=== PATIENT | female | born 1980 | race Caucasian/White ===

== ENCOUNTER 2023-12-02 07:01 | Emergency (ER) | payer OTHER, BC ==
[2023-12-02 07:33] LABS: HEMATOCRIT 43.3 % (37.0-47.0); HEMOGLOBIN 14.5 g/dL (12.0-16.0); MEAN CORPUSCULAR HEMOGLOBIN 30.7 pg (27.0-34.0); MEAN CORPUSCULAR HGB CONC 33.5 g/dL (33.0-35.0); MEAN CORPUSCULAR VOLUME 91.5 fL (80-100); PLATELET COUNT,PLT 216 10^3/uL (150-450); RED BLOOD CELL COUNT 4.73 10^6/uL (4.2-5.4); WHITE BLOOD CELL COUNT,WBC 8.4 10^3/uL (5.0-10.0)
[2023-12-02 07:41] LABS: BASOPHILS PERCENT AUTO 1.1 % (0.0-1.0); EOSINOPHILS PERCENT AUTO 2.1 % (1.0-3.0); LYMPHOCYTES PERCENT AUTO 26.1 % (20.5-50.1); MONOCYTES PERCENT AUTO 9.2 % (2-8); NEUTROPHILS PERCENT AUTO 61.5 % (42.2-75.2)
[2023-12-02 07:59] LABS: HCG QUALITATIVE,SERUM NEGATIVE (NEGATIVE)
[2023-12-02 08:06] LABS: ANION GAP 14.4 mEq/L (7-13); BLOOD UREA NITROGEN,BUN 11 mg/dL (7-18); CALCIUM 9.5 mg/dL (8.5-10.1); CARBON DIOXIDE,CO2 23 mmol/L (21-32); CHLORIDE,CL 105 mmol/L (98-107); CREATININE 1.08 mg/dL (0.55-1.02); EST CRCL DRUG DOSING (CG) 67.05 mL/min; GLUCOSE RANDOM 118 mg/dL (70-99); POTASSIUM,K 4.4 mmol/L (3.5-5.1); SODIUM,NA 138 mmol/L (136-145)
[2023-12-02 08:12] LABS: ESTIMATED GFR 65 mL/min (>=60)
[2023-12-02 08:19] LABS: BASOPHILS PERCENT MAN 1; EOSINOPHILS PERCENT MAN 1 % (1-3); LYMPHOCYTES PERCENT MAN 27 % (20-50); MONOCYTES PERCENT MAN 11 % (2-8); SEG NEUTROPHILS PERCENT MAN 60 % (42-75)
[2023-12-02] MEDS: Ondansetron 4 MG/2 ML SDV IV ONE (08:22)
[2023-12-02] MEDS: Sodium Chloride 0.9% 1,000 ML IV ONE (08:22)
[2023-12-02] MEDS: Iopamidol 612 MG/ML 100 ML Bottle IVPUSH ONE (08:32)
[2023-12-02] MEDS: Ketorolac 30 MG/ML SDV IVPUSH ONE (08:36)
[2023-12-02] MEDS: Lidocaine 5% Oint 35.44 GM Tube TOP ONE (09:52)
== END 2023-12-02 10:12 | disposition home or self-care (01) ==
LOC: DL.ED 07:01
DX: K59.00 Constipation, unspecified (principal); K64.4 Residual hemorrhoidal skin tags
CPT/HCPCS: 36415; 74177; 80048; 84703; 85025; 96361; 96374; 96375; 99284; A9270; J1885; J2405; J7030; Q9967